=== PATIENT | female | born 1960 | race Caucasian/White ===

== ENCOUNTER 2016-12-26 08:39 | Outpatient (CLI) | payer OTHER ==
--- NOTE | 2016-12-26 13:18 | MRI ---
MRI LUMBAR SPINE WITHOUT CONTRAST: HISTORY: Lumbar spine radiculopathy. Low back pain. Radiation down the right lower extremity. COMPARISON: None. TECHNIQUE: A lumbar spine MRI is performed without contrast administration. Multisequential, multiplanar imagi ng is performed. FINDINGS: There is appropriate T1 marrow signal intensity of the lumbar vertebrae. Lumbar spine vertebral bod y height is maintained. No fracture. No significant STIR hyperintensity to suggest vertebral body edema or ligamentous injury. There is symmetric signal intensity of the psoas muscle. There is appropriate signal intensity of t he visualized solid organs. The conus medullaris terminates at the mid L1 level. T12-L1: Disk desiccation without significant loss of disk space height. No significant central can al stenosis. The neural foramina are patent. L1-L2: Adequate disk hydration. No significant central canal stenosis or foraminal narrowing. L2-L3: Adequate disk hydration. No significant central canal stenosis or foraminal narrowing. L3-L4: Disk desiccation without significant loss of disk space height. Minimal generalized disk bu lge and posterior element hypertrophy result in mild central canal stenosis. The right neural du en is patent. Mild left foraminal narrowing. L4-L5: Disk desiccation. There is 4 mm of anterolisthesis of L4 upon L5. Generalized disk bulge w ith minimal central disk bulge. Mild ligamentum flavum thickening and facet hypertrophy. Never-the -less, no significant central canal stenosis or foraminal narrowing. L5-S1: 2.7 mm of anterolisthesis of L5 upon S1. There is intrinsic T2 and STIR hyperintensity invo lving the posterior third of the disk with associated disk protrusion. Small annular fissure cannot be excluded. There is no significant central canal stenosis. The neural foramina are patent bilat erally. IMPRESSION: 1. Possible annular tear at L5-S1. No high grade central canal stenosis or high grade foraminal na rrowing. 2. Grade 1 anterolisthesis of L4 upon L5 and of L5 upon S1. POS: [facility]
== END 2016-12-26 08:40 | disposition home or self-care (01) ==
LOC: MRI 08:39
PROVIDERS: ATTEND Family Medicine
DX: M54.10 Radiculopathy, site unspecified (principal); M43.16 Spondylolisthesis, lumbar region; M43.17 Spondylolisthesis, lumbosacral region
CPT/HCPCS: 72148

== ENCOUNTER 2017-05-01 09:04 | Observation (INO) | payer OTHER ==
[2017-05-01 10:21] LABS: #Basophils 0.1 thou/uL (0.0-0.2); #Lymphocytes 1.4 thou/uL (1.20-3.40); #Monocytes 0.5 thou/uL (0.11-0.59); #Neutrophils 9.4 thou/uL (1.40-6.50); %Basophils 0.6 % (0.0-1.0); %Eosinophils 0.3 % (0.0-10.0); %Lymphocytes 12.2 % (21.0-51.0); %Monocytes 4.7 % (0.0-10.0); %Neutrophils 82.2 % (42.0-75.0); Hemoglobin 11.9 g/dL (12.0-16.0); Mean Corpuscular HGB CONC 32.5 g/dL (32.0-36.0); Mean Corpuscular Hemoglobin 31.7 pg (27.0-31.0); Mean Corpuscular Volume 97.5 fl (81.0-99.0); Mean Platelet Volume 7.3 fL (7.4-10.4); Platelet Count 174 thou/uL (130-400); RBC Distribution Width 12.2 % (11.5-14.5); Red Blood Cell (RBC) Count 3.75 mill/uL (4.20-5.40); White Blood Cell (WBC) Count 11.5 thou/uL (4.8-10.8)
[2017-05-01 10:29] LABS: INR-International Normal Ratio 1.1; Prothrombin Time 13.9 SEC (12.0-14.7)
[2017-05-01 10:31] LABS: D-Dimer Test 0.72 *mcg/mL (0.27-0.43)
[2017-05-01 10:41] LABS: ALT (SGPT) 16 U/L (8-55); AST (SGOT) 21 U/L (5-34); Albumin 3.8 g/dL (3.5-5.0); Alkaline Phosphatase 61 U/L (40-150); Anion Gap 11 mmol/L (10-20); BUN (Urea Nitrogen) 13 mg/dL (9.8-20.1); Bilirubin, Total 0.7 mg/dL (0.2-1.2); Calc. Creatinine Clearance 0 mL/min (70-130); Calcium 9.4 mg/dL (7.8-10.44); Carbon Dioxide 27 mmol/L (22-29); Chloride 105 mmol/L (98-107); Estimated GFR-MDRD 66; Globulin 3.2 g/dL (2.4-3.5); Glucose 90 mg/dL (70-105); Potassium 3.7 mmol/L (3.5-5.1); Sodium 139 mmol/L (136-145)
[2017-05-01] MEDS ORDERED: Clindamycin/D5W 900 mg/50 ml Premix Bag ONE (10:46)
--- NOTE | 2017-05-01 11:43 | ULT ---
VENOUS DOPPLER ULTRASOUND OF THE LEFT LOWER EXTREMITY: HISTORY: Left lower extremity edema and pain. TECHNIQUE: Morgan scale ultrasound with color flow and spectral Doppler imaging of the deep venous system of the l eft lower extremity was performed. FINDINGS: There is good flow, compression, and augmentation noted in the left common femoral, femoral, deep fem oral, popliteal, posterior tibial, and greater saphenous veins. IMPRESSION: No evidence of deep vein thrombosis in the left lower extremity. POS: [facility]
--- NOTE | 2017-05-01 13:53 | PDOC.FM ---
- Subjective Subjective: This is a 56 yo WF w/ PMH HTN and cellulitis, presents from care home for LLE pain. She states that it started on Saturday with just not feeling good, and having chills, then yesterday she noticed LLE redness and had a mild headache, and today her LLE was very red, warm to touch, and painful. Unsure if she had true fevers, as she doesn't have access to a thermomter. She hasn't had any recent trauma or travel. Denies any anorexia or rash anywhere else. Hasn't tried anything for the cellulitis this time. This is the same presentation which happened in october 2016 and at that time, she was admitted for a few days of IV antibiotics as she had failed outpatient treatment. In the ER here, she was given Vancomycin 15mg/kg and Clindamycin 900mg IVPB and 1L NS. - Objective Vital Signs & Weight: Weight Weight 119 kg Result Diagrams: 05/01/17 10:11 05/01/17 10:11
--- NOTE | 2017-05-01 13:57 | PDOC.FPRHP ---
- History of Present Illness Chief Complaint: LLE pain History of Present Illness: This is a 56 yo WF w/ PMH HTN and cellulitis, presents from longterm for LLE pain. She states that it started on Saturday with just not feeling good, and having chills, then yesterday she noticed LLE redness and had a mild headache, and today her LLE was very red, warm to touch, and painful. Unsure if she had true fevers, as she doesn't have access to a thermomter. She hasn't had any recent trauma or travel. Denies any anorexia or rash anywhere else. Hasn't tried anything for the cellulitis this time. This is the same presentation which happened in october 2016 and at that time, she was admitted for a few days of IV antibiotics as she had failed outpatient treatment. In the ER here, she was given Vancomycin 15mg/kg and Clindamycin 900mg IVPB and 1L NS. ED Course: There was concern for LLE Cellulitis, and with her failing outpatient treatment last time, and the extent of rash upon admission, they elected to admit the patient adn start IV vancomycin and Clindamycin. - Allergies/Adverse Reactions Allergies Allergy/AdvReac Type Severity Reaction Status Date / Time bubbawi Allergy Severe Anaphylaxis Verified 05/01/17 14:11 - Home Medications Medication Instructions Recorded Confirmed Type Ascorbate Calcium [Vitamin C] 1 tab PO BID 11/01/16 05/01/17 History Aspirin [Ecotrin Low Strength] 81 mg PO HS 11/01/16 05/01/17 History Calcium Carbonate/Vitamin D3 1 tab PO HS 11/01/16 05/01/17 History [Calcium 500 + Vitamin D3 400] Furosemide 40 mg PO DAILY 11/01/16 05/01/17 History Lisinopril 5 mg PO DAILY 11/01/16 05/01/17 History Potassium Chloride [K-Dur] 10 meq PO DAILY 11/01/16 05/01/17 History Vitamin B Complex 1 each PO HS 11/01/16 05/01/17 History Vitamin E 400 unit PO HS 11/01/16 05/01/17 History Clotrimazole 1% Cream [Lotrimin 1% 1 gm TOP BID #1 tube 11/04/16 05/01/17 Rx Cream] Nystatin [Mycostatin Powder] 1 gm TOP BID #1 bot 11/04/16 05/01/17 Rx - History PMHx: HTN, RAHUL, Allergic Rhinitis, History of Alcohol abuse last drink over 7 years ago, Myopia PSHx: Umbilical Hernia surgery FHx: Dad desceased of [place] age 50's. Mom HTN Social: In longterm. Denies any tobacco abuse, drug use, and hasn't had alcohol in over 7 years. - Review of Systems General: reports: fever/chills Gastrointestinal: reports: nausea, vomiting (x1 yesterday) Skin: reports: rashes Musculoskeletal: reports: pain (LLE), tenderness (LLE) Neurological: reports: numbness (chronic fingers bilaterally) - Vital signs BP: [100/50] HR: [63] RR: [17] Tmax: [98.6] Pox: [98]% on [RA] Wt: [119] - Physical Exam Constitutional: NAD, awake, alert and oriented -Constitutional: Pleasant, obese HEENT: PERRLA, EOMI, conjunctiva clear, TM's clear and intact, grossly normal hearing, normal nasal mucosa, MMM, oropharynx clear Neck: supple, trachea midline, no JVD Heart: RRR, normal S1/S2, no murmurs/rubs/gallops Lungs: CTAB, no respiratory distress, good air movement, no rales/rhonchi, no wheezing Abdomen: soft, non-tender, no masses/distention -Skin: + Erythematous, warm to touch LLE over tibia from ankle to just below the knee Psychiatric: normal mood and affect, good judgment and insight FMR H&P: Results - Labs Result Diagrams: 05/01/17 10:11 05/01/17 10:11 Lab results: WBC 11.5 thou/uL (4.8-10.8) H 05/01/17 10:11 Hgb 11.9 g/dL (12.0-16.0) L 05/01/17 10:11 Hct 36.6 % (36.0-47.0) 05/01/17 10:11 MCV 97.5 fl (81.0-99.0) 05/01/17 10:11 Plt Count 174 thou/uL (130-400) 05/01/17 10:11 Neutrophils % 82.2 % (42.0-75.0) H 05/01/17 10:11 ESR Westergren 33 mm/hr (Less than 30) 05/01/17 10:11 Sodium 139 mmol/L (136-145) 05/01/17 10:11 Potassium 3.7 mmol/L (3.5-5.1) 05/01/17 10:11 Chloride 105 mmol/L (98-107) 05/01/17 10:11 Carbon Dioxide 27 mmol/L (22-29) 05/01/17 10:11 BUN 13 mg/dL (9.8-20.1) 05/01/17 10:11 Creatinine 0.89 mg/dL (0.6-1.1) 05/01/17 10:11 Glucose 90 mg/dL (70-105) 05/01/17 10:11 Calcium 9.4 mg/dL (7.8-10.44) 05/01/17 10:11 Total Bilirubin 0.7 mg/dL (0.2-1.2) 05/01/17 10:11 AST 21 U/L (5-34) 05/01/17 10:11 ALT 16 U/L (8-55) 05/01/17 10:11 Alkaline Phosphatase 61 U/L (40-150) 05/01/17 10:11 Serum Total Protein 7.0 g/dL (6.0-8.3) 05/01/17 10:11 Albumin 3.8 g/dL (3.5-5.0) 05/01/17 10:11 Additional comment: ESR 33 D-dimer 0.72 which is lower than last visit. - Radiology Interpretation US - venous Status: report reviewed by me (Negative for DVT in LLE) FMR H&P: A/P - Problem List (1) Lower extremity cellulitis Current Visit: Yes Onset Date: 04/30/17 Status: Acute Code(s): L03.119 - CELLULITIS OF UNSPECIFIED PART OF LIMB Qualifiers: Laterality: left Qualified Code(s): L03.116 - Cellulitis of left lower limb Assessment and Plan: E cellulitis w/ history of failed outpatient antibiotics and required IV antibiotics less than 1 year ago. Will admit to medical and continue Vancomycin IV and will consult pharmacy to monitor dosing. She is s/p 1L NS. Will monitor her BP and bolus if needed. Patient is tolerating PO currently. Encourage PO intake. Tylenol and Motrin PRN for pain. Lactic Acid, Blood Cultures and CBC, CMP for AM. We will obtain a baseline EKG with her history of HTN. (2) Hypertension Current Visit: Yes Status: Acute Code(s): I10 - ESSENTIAL (PRIMARY) HYPERTENSION Comment: Continue home medication of lisinopril and lasix. (3) RAHUL (obstructive sleep apnea) Current Visit: No Status: Chronic Code(s): G47.33 - OBSTRUCTIVE SLEEP APNEA (ADULT) (PEDIATRIC) Assessment and Plan: CPAP if needed PRN. - Plan Disposition/LOS: Likely to stay for 2 days for IV antibiotics. FMR H&P: Upper Level - Plan Date/Time: 05/01/17 [id number] I, [], have evaluated this patient and agree with findings/plan as outlined by internal combustion engineer resident. Pertinent changes/additions are listed here. Attending Addendum - Attending Addendum Date/Time: 05/01/17 3054 I personally evaluated the patient and discussed the management with Dr. Villanueva I agree with the History, Examination, Assessment and Plan documented above with any addition or exceptions noted below- Briefly this is a 56 year old WF with h/o HTN, RAHUL who presents with redness, swelling and pain in left lower extremity. Patient states that she felt feverish Saturday evening and felt malaise yesterday. This morning she noted redness over anterior portion of left lower extremity. Has history of cellulitis in same area and leg in October requiring hospitalization. Physical exam repeated by me-large area of redness over anterior portion of left lower extremity, warm and tender to touch.A/p: Cellulitis- continue IV antibiotics. USG negative for DVT.
[2017-05-01] MEDS ORDERED: Senokot 8.6 MG TAB PO PRN (15:09)
[2017-05-01] MEDS ORDERED: Ondansetron ODT 4 MG TAB PO PRN (15:09)
[2017-05-01] MEDS ORDERED: Ondansetron PF 4 MG/2 ML Vial IVP PRN (15:09)
[2017-05-01 15:32] LABS: Lactic Acid 0.8 mmol/L (0.5-2.2)
[2017-05-01] MEDS ORDERED: VANCOMYCIN IVPB PRN (15:47)
[2017-05-01 15:52] VITALS: BMI 46.5
[2017-05-01] MEDS: Potassium Chloride 10 MEQ TAB PO SCH (18:10)
[2017-05-01] MEDS: Acetaminophen 325 MG TAB PO PRN (18:16)
[2017-05-01] MEDS: Aspirin 81 mg Enteric Coated Tablet PO SCH (19:58)
[2017-05-02] MEDS ORDERED: Vancomycin HCl 1 GM in Premix Bag 1 BAG IVPB SCH (01:00)
[2017-05-02 05:20] LABS: #Eosinphils 0.2 thou/uL (0.0-0.7); #Lymphocytes 2.3 thou/uL (1.20-3.40); #Monocytes 0.6 thou/uL (0.11-0.59); #Neutrophils 4.2 thou/uL (1.40-6.50); %Basophils 0.3 % (0.0-1.0); %Eosinophils 2.9 % (0.0-10.0); %Monocytes 7.7 % (0.0-10.0); %Neutrophils 57.1 % (42.0-75.0); Mean Corpuscular HGB CONC 33.3 g/dL (32.0-36.0); Mean Corpuscular Hemoglobin 32.5 pg (27.0-31.0); Mean Corpuscular Volume 97.7 fl (81.0-99.0); Mean Platelet Volume 7.5 fL (7.4-10.4); Platelet Count 152 thou/uL (130-400); RBC Distribution Width 12.2 % (11.5-14.5); Red Blood Cell (RBC) Count 3.38 mill/uL (4.20-5.40); White Blood Cell (WBC) Count 7.3 thou/uL (4.8-10.8)
[2017-05-02 05:32] LABS: Anion Gap 9 mmol/L (10-20); BUN (Urea Nitrogen) 12 mg/dL (9.8-20.1); Calc. Creatinine Clearance 153 mL/min (70-130); Calcium 9.1 mg/dL (7.8-10.44); Carbon Dioxide 28 mmol/L (22-29); Chloride 108 mmol/L (98-107); Estimated GFR-MDRD 78; Glucose 94 mg/dL (70-105); Potassium 4.2 mmol/L (3.5-5.1); Sodium 141 mmol/L (136-145)
[2017-05-02] MEDS: Enoxaparin Sodium 40 MG/0.4 ML SYRINGE SC SCH (08:02)
[2017-05-02] MEDS: Potassium Chloride 10 MEQ TAB PO SCH (08:02)
[2017-05-02] MEDS: Furosemide 40 MG TAB PO SCH (08:03)
[2017-05-02] MEDS: Lisinopril 5 MG TAB PO SCH (08:08)
[2017-05-02] MEDS: Acetaminophen 325 MG TAB PO PRN (13:16)
--- NOTE | 2017-05-02 13:49 | PDOC.FM ---
- Subjective Subjective: No acute events overnight. Not complaining of pain. Slept well. Requesting a regular diet. - Objective MAR Reviewed: Yes Vital Signs & Weight: Vital Signs (12 hours) Temp Pulse Resp BP BP Pulse Ox 05/02/17 08:08 98.6 F 72 16 123/78 123/78 93 L 05/02/17 08:00 98.6 F 72 16 05/02/17 04:00 98.5 F 73 18 100/62 94 L Weight Weight 119.159 kg Result Diagrams: 05/02/17 04:48 05/02/17 04:48 <Ana Paula Herrera - Last Filed: 05/02/17 13:46> - Objective Vital Signs & Weight: Vital Signs (12 hours) Temp Pulse Resp BP BP Pulse Ox 05/02/17 16:00 98.7 F 67 20 104/70 96 05/02/17 12:00 99.6 F 65 20 112/74 96 05/02/17 08:08 98.6 F 72 16 123/78 123/78 93 L 05/02/17 08:00 98.6 F 72 16 Weight Weight 119.159 kg Result Diagrams: 05/02/17 04:48 05/02/17 04:48 <Larissa Gil - Last Filed: 05/02/17 18:37> Phys Exam - Physical Examination Constitutional: NAD HEENT: PERRLA, moist MMs Respiratory: no wheezing, no rales, clear to auscultation bilateral Cardiovascular: RRR, no significant murmur Gastrointestinal: soft, non-tender, no distention, positive bowel sounds Musculoskeletal: no edema, pulses present Neurological: non-focal Psychiatric: normal affect, A&O x 3 Deviation from normal: erythema and warmth to left lower extremity; no pus/ abcess <Ana Paula Herrrea - Last Filed: 05/02/17 13:46> Dx/Plan (1) Hypertension Code(s): I10 - ESSENTIAL (PRIMARY) HYPERTENSION Status: Acute (2) Lower extremity cellulitis Code(s): L03.119 - CELLULITIS OF UNSPECIFIED PART OF LIMB Status: Acute QualifierTitle: Laterality: left Qualified Code(s): L03.116 - Cellulitis of left lower limb (3) APRYL (obstructive sleep apnea) Code(s): G47.33 - OBSTRUCTIVE SLEEP APNEA (ADULT) (PEDIATRIC) Status: Chronic - Plan Plan: 56 yo f with pmhx of htn and apryl presents with LLE cellulitis, admitted for the LLE cellulitis. LLE cellulitis, improved from yesterday- -No evidence of DVT -Continue Vanc IV -Consider transition to clindamicin tomorrow and potential dc tomorrow. HTN, controlled. -Continue Lisinopril and Lasix as well as Potassium daily. APRYL- O2 sats wnl and rr wnl. Will monitor. Obesty- -Continue aspirin -encourage ambulation -CPAP prn <Ana Paula Herrera - Last Filed: 05/02/17 13:46> Attending Addendum - Attending Addendum Date/Time: 05/02/17 183 I personally evaluated the patient and discussed the management with Dr. Herrera. I agree with the History, Examination, Assessment and Plan documented above with any addition or exceptions noted below. The patient will continue IV vancomycin. Cellulitis is improving. <Larissa Gil - Last Filed: 05/02/17 18:37>
[2017-05-02] MEDS ORDERED: Vancomycin HCl 1.75 GM in Sodium Chloride 0.9% 500 ML IVPB SCH (14:00)
[2017-05-02] MEDS: Aspirin 81 mg Enteric Coated Tablet PO SCH (19:55)
[2017-05-03 05:08] LABS: #Basophils 0.1 thou/uL (0.0-0.2); #Eosinphils 0.4 thou/uL (0.0-0.7); #Lymphocytes 2.1 thou/uL (1.20-3.40); #Monocytes 0.5 thou/uL (0.11-0.59); #Neutrophils 1.8 thou/uL (1.40-6.50); %Basophils 1.3 % (0.0-1.0); %Lymphocytes 43.5 % (21.0-51.0); %Monocytes 9.2 % (0.0-10.0); %Neutrophils 37.9 % (42.0-75.0); Hemoglobin 11.5 g/dL (12.0-16.0); Mean Corpuscular HGB CONC 33.5 g/dL (32.0-36.0); Mean Corpuscular Hemoglobin 32.6 pg (27.0-31.0); Mean Corpuscular Volume 97.4 fl (81.0-99.0); Mean Platelet Volume 7.8 fL (7.4-10.4); Platelet Count 170 thou/uL (130-400); Red Blood Cell (RBC) Count 3.52 mill/uL (4.20-5.40); White Blood Cell (WBC) Count 4.8 thou/uL (4.8-10.8)
[2017-05-03 05:23] LABS: Anion Gap 9 mmol/L (10-20); BUN (Urea Nitrogen) 11 mg/dL (9.8-20.1); Calc. Creatinine Clearance 160 mL/min (70-130); Calcium 9.4 mg/dL (7.8-10.44); Carbon Dioxide 29 mmol/L (22-29); Chloride 108 mmol/L (98-107); Estimated GFR-MDRD 81; Glucose 97 mg/dL (70-105); Potassium 4.3 mmol/L (3.5-5.1); Sodium 142 mmol/L (136-145)
[2017-05-03] MEDS: Acetaminophen 325 MG TAB PO PRN (08:55)
[2017-05-03] MEDS: Potassium Chloride 10 MEQ TAB PO SCH (08:56)
[2017-05-03] MEDS: Furosemide 40 MG TAB PO SCH (08:56)
[2017-05-03] MEDS: Lisinopril 5 MG TAB PO SCH (08:56)
[2017-05-03] MEDS: Enoxaparin Sodium 40 MG/0.4 ML SYRINGE SC SCH (08:57)
--- NOTE | 2017-05-03 11:16 | PDOC.FM ---
- Subjective Subjective: No acute events overnight. No complaints this am. States her leg feels better. - Objective MAR Reviewed: Yes Vital Signs & Weight: Vital Signs (12 hours) Temp Pulse Resp BP BP Pulse Ox 05/03/17 08:56 64 105/71 05/03/17 07:45 98.1 F 64 18 105/71 95 Weight Weight 119.159 kg Result Diagrams: 05/03/17 04:43 05/03/17 04:43 <Ana Paula Herrera - Last Filed: 05/03/17 11:17> - Objective Vital Signs & Weight: Vital Signs (12 hours) Temp Pulse Resp BP BP Pulse Ox 05/03/17 17:28 98.5 F 68 16 104/57 L 95 05/03/17 08:56 64 105/71 Weight Weight 119.159 kg I&O: 05/02/17 05/03/17 05/04/17 06:59 06:59 06:59 Intake Total 660 Balance 660 Result Diagrams: 05/03/17 04:43 05/03/17 04:43 <Larissa Gil - Last Filed: 05/03/17 20:27> Phys Exam - Physical Examination Constitutional: NAD HEENT: PERRLA, moist MMs Respiratory: no wheezing, no rales, clear to auscultation bilateral Cardiovascular: RRR, no significant murmur Gastrointestinal: soft, non-tender, no distention, positive bowel sounds Musculoskeletal: no edema Neurological: non-focal Psychiatric: normal affect, A&O x 3 Deviation from normal: decreased erythema of left lower extremity; no pus <Ana Paula Herrera - Last Filed: 05/03/17 11:17> Dx/Plan (1) Hypertension Code(s): I10 - ESSENTIAL (PRIMARY) HYPERTENSION Status: Acute (2) Lower extremity cellulitis Code(s): L03.119 - CELLULITIS OF UNSPECIFIED PART OF LIMB Status: Acute QualifierTitle: Laterality: left Qualified Code(s): L03.116 - Cellulitis of left lower limb (3) APRYL (obstructive sleep apnea) Code(s): G47.33 - OBSTRUCTIVE SLEEP APNEA (ADULT) (PEDIATRIC) Status: Chronic - Plan Plan: 56 yo f with pmhx of htn and apryl presents with LLE cellulitis, admitted for the LLE cellulitis. LLE cellulitis, improved. -No evidence of DVT -Clindamicin 450mg q6h PO for a total of 10 days. HTN, controlled. -Continue Lisinopril and Lasix as well as Potassium daily. APRYL- O2 sats wnl and rr wnl. Will monitor. Obesty- -Continue aspirin -encourage ambulation -CPAP prn dispo: DC today to [facility] <Ana Paula Herrera - Last Filed: 05/03/17 11:17> Attending Addendum - Attending Addendum Date/Time: 05/03/17 7886 I personally evaluated the patient and discussed the management with Dr. Herrera. I agree with the History, Examination, Assessment and Plan documented above with any addition or exceptions noted below. The patient's cellulitis continues to improve. Will discharge on oral clindamycin. <Larissa Gil - Last Filed: 05/03/17 20:27>
[2017-05-03 13:46] LABS: Vancomycin, Trough 6.4 ug/mL
[2017-05-03] MEDS ORDERED: Vancomycin HCl 1.75 GM in Sodium Chloride 0.9% 500 ML IVPB SCH (14:00)
[2017-05-03 17:28] VITALS: BP 104/57; TEMP 98.5
--- NOTE | 2017-05-07 08:09 | DIS-2 ---
ADMISSION DATE: 05/01/2017 DISCHARGE DATE: 05/03/2017 ADMITTING RESIDENT: Dr. Sahu. ADMITTING ATTENDING: Dr. Rasheeda Chowdhury. DISCHARGE RESIDENT: Dr. Ana Paula Herrera. DISCHARGING ATTENDING: Dr. Larissa Gil. CONSULTS: None. PROCEDURES: Vascular ultrasound, which showed no evidence of a DVT in the left lower extremity. PRIMARY DIAGNOSIS: Left lower extremity cellulitis. SECONDARY DIAGNOSES: 1. Hypertension. 2. Obstructive sleep apnea. 3. Obesity. DISCHARGE MEDICATIONS: 1. Clindamycin 450 mg oral q.6 hours. 2. Calcium 500 plus vitamin D3 400 1 tab oral at bedtime. 3. Vitamin B complex 1 tablet oral at bedtime. 4. Vitamin C 1 tablet oral twice daily. 5. Aspirin 81 mg oral at bedtime. 6. Potassium chloride 10 mEq oral daily. 7. Lisinopril 5 mg oral daily. 8. Vitamin E 400 units oral at bedtime. 9. Furosemide 40 mg oral daily. 10. Clotrimazole 1 gram topical twice daily. 11. Nystatin 1 gram topical twice daily. HISTORY OF PRESENT ILLNESS AND HOSPITAL COURSE: Ms. Leticia Harrison is a 56-year -old female with a past medical history of hypertension and cellulitis last fall , presents from halfway with left lower extremity pain. She today noticed her left lower extremity was very red, warm to the touch and painful. This is the same presentation, which happened in 10/2016. At that time, she failed outpatient treatment. She was discharged on clindamycin, but this medicine was replaced at the longterm with Bactrim, which she failed outpatient management. She is admitted at this time for left lower extremity cellulitis. She was started on IV vancomycin. Her vitals on initial admission reflected a blood pressure that was slightly hypotensive 100/50, heart rate of 63, respiratory rate 17. She was afebrile and saturating well, 98% on room air. Her physical exam on admission did show an erythematous, warm to the touch. Left lower extremity over her tibia from the ankle to just below the knee. No evidence of abscesses. Her labs on admission showed a leukocytosis of 11.5 and a slightly low hemoglobin of 11.9 and then her venous Doppler ultrasound did not show evidence of a DVT. On hospital day #2, the erythema had decreased. The outline of the cellulitis had been marked with a pen and the next day, the redness had definitely decreased from that line. Her vitals remained stable during her hospitalization. She was discharged on hospital day #3 with signs of continued improvement in terms of erythema and warmth. She was discharged on clindamycin 450 mg q.6 hours for a total of 10 days. 1. Hypertension: Her blood pressures were well controlled during her hospitalization. She is on lisinopril and Lasix with potassium daily. 2. Obstructive sleep apnea, her O2 sats were within normal limits and her respiratory rate was normal. CPAP prn was provided. 3. Obesity. We provided CPAP p.r.n.,and counseled her on diet and exercise. DISPOSITION: Stable. Discharged to longterm. DISCHARGE INSTRUCTIONS: 1. Diet: Regular diet, encourage heart healthy diet. 2. Activity: No restrictions. 3. Follow up is recommended that she follow up with her primary care physician within 1 week. JUANA
== END 2017-05-03 19:10 ==
LOC: ERS 09:04 → INTOOBSV 12:56 → T4-A 12:56
PROVIDERS: ADMIT Family Medicine; ATTEND Family Medicine
DX: L03.116 Cellulitis of left lower limb (principal); I10 Essential (primary) hypertension; G47.33 Obstructive sleep apnea (adult) (pediatric); F10.11 Alcohol abuse, in remission; E66.9 Obesity, unspecified; Z68.42 Body mass index [BMI] 45.0-49.9, adult; Z91.018 Allergy to other foods; Z79.82 Long term (current) use of aspirin; Z79.899 Other long term (current) drug therapy; Z98.890 Other specified postprocedural states
CPT/HCPCS: 36415; 80048; 80053; 80202; 83605; 85025; 85379; 85610; 85652; 87040; 93005; 93010; 96361; 96365; 96366; 96367; 96372; G0378; J1650; J3370; J3490; J7050

== ENCOUNTER 2017-10-16 09:06 | Outpatient (CLI) | payer OTHER ==
--- NOTE | 2017-10-18 10:55 | MMO ---
BILATERAL MAMMOGRAMS: History: Screening mammography. Comparison: Multiple exams back to 10-02-13. FINDINGS: Scattered fibroglandular densities and benign appearing calcifications. No dominant mass or suspiciou s calcifications. Study was evaluated with the assistance of computer aided detection. IMPRESSION: BIRADS category 1 - negative. Suggest routine follow up. POS: [facility]
== END 2017-10-16 09:07 | disposition home or self-care (01) ==
LOC: SCSMAMMO 09:06
PROVIDERS: ATTEND Family Medicine
DX: Z12.31 Encounter for screening mammogram for malignant neoplasm of breast (principal)
CPT/HCPCS: 77067